=== PATIENT | male | born 1945 | race Two or more races ===

== ENCOUNTER 2025-01-23 21:14 | Emergency (ER) | payer MEDICARE, MEDICAID, SELFPAY ==
[2025-01-23 21:16] VITALS: BMI 31.4
[2025-01-23 22:41] VITALS: BP 121/70; PULSE 60; RESP 18; TEMP 36.6; O2SAT 96
--- NOTE | 2025-01-23 23:46 | XR_ITS ---
Examination: CT lumbar spine, without contrast. 2-D sagittal reconstructions. 2-D coronal reconstructions. 3-D reconstructions. Date and time of exam: January 24, 2025, 0038 hours INDICATIONS: Patient fell today with injury to lower back, lower back pain CTDI: vol (mGy):44.9 DLP: (mGycm):1201 Technique: Multiple 1.25 mm axial sections of the lumbar spine without intravenous contrast have been obtained. 2-D sagittal and coronal reconstructions have been obtained. 3-D reconstructions have been obtained. Low dose protocols were performed. One or more of the following dose reduction techniques were used; automated exposure control, adjustment of the mA and/or KV according to patient size, use of iterative reconstruction technique. Findings: Adequate alignment lumbar vertebral bodies No lumbar vertebral body compression fracture Lumbar pedicles, laminae, transverse and posterior spinous processes intact No focal lumbar disc protrusion IMPRESSION: No lumbar fracture
--- NOTE | 2025-01-23 23:46 | XR_ITS ---
Examination: CT cervical spine without contrast 2-D sagittal reconstructions 2-D coronal reconstructions 3-D reconstructions. Exam date and time:January 24, 2025 0035 hours INDICATIONS: Patient fell today with injury to the neck, neck pain CTDI:vol (mGy) 51 DLP: (mGycm) 941 Technique: Multiple 2 mm axial sections of the cervical spine have been obtained. The coronal and sagittal reconstructions have been obtained. 3-D reconstructions have been obtained. Low dose protocols were performed. One or more of the following dose reduction techniques were used; automated exposure control, adjustment of the mA and/or KV according to patient size, use of iterative reconstruction technique. Findings: Axial sections demonstrate intact base of the skull. C1 exhibit satisfactory relationship to the odontoid. No acute cervical vertebral body fracture seen. Alignment posterior spinous processes satisfactory. Multiple subcentimeter osteolytic lesions Mild pleural disease Impression: No acute cervical fracture. Multiple subcentimeter osteolytic lesions vertebral bodies, osseous metastatic disease not excluded, recommend MRI cervical spine follow-up, pre and postcontrast
--- NOTE | 2025-01-23 23:46 | XR_ITS ---
Examination: CT brain head without contrast. 2-D sagittal coronal reconstructions Date and time of exam:January 24, 2025 0038 hours INDICATIONS: Patient fell today with injury to the head, pain CTDI: vol (mGy):51 DLP: (mGycm):1019 Technique: Multiple CT axial sections of the brain have been obtained, 5 mm slice thickness. Contrast has not been administered. 2-D sagittal, coronal reconstructions have been obtained Low dose protocols were performed. One or more of the following dose reduction techniques were used; automated exposure control, adjustment of the mA and/or KV according to patient size, use of iterative reconstruction technique. Findings: Acute right subdural hematoma, measuring up to 24 mm in thickness with severe effacement of right cerebral markings Significant mass effect with midline shift 7 mm Ventricles are not enlarged Fourth ventricle is midline Chronic/subacute left subdural hematoma at the convexity measuring up to 9 mm No intraventricular hemorrhage Cranial vault intact IMPRESSION: Large acute right subdural hematoma with significant mass effect as above
--- NOTE | 2025-01-23 23:46 | XR_ITS ---
Examination: CT thoracic spine, without contrast. 2-D sagittal reconstructions. 2-D coronal reconstructions. 3-D reconstructions. Date and time of exam: January 24, 2025 1238 hours INDICATIONS: Patient fell today with injury to the back, mid back pain CTDI: vol (mGy):41 DLP: (mGycm):585 Technique: Multiple 1.25 mm axial sections of the thoracic spine without intravenous contrast have been obtained. 2-D sagittal and coronal reconstructions have been obtained. 3-D reconstructions have been obtained. Low dose protocols were performed. One or more of the following dose reduction techniques were used; automated exposure control, adjustment of the mA and/or KV according to patient size, use of iterative reconstruction technique. Findings: Adequate alignment thoracic vertebral bodies on the lateral view No thoracic vertebral body compression fracture No focal thoracic disc protrusion IMPRESSION: No acute thoracic fracture
--- NOTE | 2025-01-23 23:46 | PC.NURSE ---
C collar applied at 9906.
--- NOTE | 2025-01-24 00:50 | PD.EDHEAD ---
ED Head Injury RME/HPI General Chief complaint: Fall Stated complaint: FALL, HIT HEAD, BACK INJURY Time Seen by Provider: 01/23/25 23:46 Arrival date/time: 01/23/25 21:14 79M with history of DM and HTN presents to ED with head and back pain after slip and fall in shower. Patient has some dizziness, but no other symptoms. Patient denies LOC, AMS, seizures, N/V, and vision changes. Limitations: no limitations Related Data Home Medications ?Medication ?Instructions ?Recorded ?Confirmed Cyclobenzaprine * (FLEXERIL *) 5 mg PO TID #0 tabs 06/09/17 ibuprofen 600 mg tablet 600 mg PO Q6HR PRN PAIN #0 tabs 06/09/17 metformin 500 mg tablet 500 mg PO BIDAC #0 tabs 06/09/17 (Glucophage) Allergies Allergy/AdvReac Type Severity Reaction Status Date / Time No Known Allergies Allergy Verified 01/23/25 21:15 Review of Systems Review of Systems Systems Reviewed: All systems reviewed, normal except as documented Constitutional Constitutional: Reports system reviewed and no additional complaints, except as documented, Denies fever(s) and Denies headache(s) ENT Ears, Nose, Mouth, and Throat: Reports as per HPI, Denies disequilibrium, Denies headache(s) and Reports vertigo Cardiovascular Cardiovascular: Reports system reviewed and no additional complaints, except as documented, Denies chest pain and Denies dyspnea Respiratory Respiratory: Reports system reviewed and no additional complaints, except as documented, Denies cough and Denies dyspnea Gastrointestinal Gastrointestinal: Reports system reviewed and no additional complaints, except as documented, Denies abdominal pain, Denies nausea and Denies vomiting Neurologic Neurologic: Reports system reviewed and no additional complaints, except as documented, Denies confusion, Denies disequilibrium, Denies headache(s) and Reports vertigo Psychiatric Psychiatric: Denies confusion Past Medical History Social History SMOKING STATUS: Never smoker ED Exam General Limitations: Present no limitations General appearance: Present alert and in no apparent distress Head Head exam: Present atraumatic Eye Eye exam: Present normal appearance, PERRL and EOMI ENT ENT exam: Present normal exam, normal oropharynx and mucous membranes moist Neck Neck exam: Present normal inspection, full ROM and trachea midline Chest Chest inspection: Present normal inspection and symmetric chest wall rise Respiratory Respiratory exam: Present normal lung sounds bilaterally Cardiovascular Cardiovascular exam: Present regular rate, normal rhythm and normal heart sounds Abdominal Exam Abdominal exam: Present soft and normal bowel sounds Extremities Exam Extremities exam: Present normal inspection and full ROM Back Exam Back exam: Present normal inspection and full ROM Neurological Exam Neurological exam: Present alert, oriented X3 and CN II-XII intact Psychiatric Psychiatric exam: Present normal affect and normal mood Skin Skin exam: Present warm, dry, intact and normal color Course Quality Measures none Orders Category Date Time Status Insert IV NOW Care 01/24/25 01:[address] cervical spine wo con Stat Exams 01/23/25 23:[address] head/brain wo con Stat Exams 01/23/25 23:[address] lumbar spine wo con Stat Exams 01/23/25 23:[address] thoracic spine wo con Stat Exams 01/23/25 23:46 Taken CBC Stat Lab 01/24/25 01:08 Completed CMP [Comprehensive Metabolic Panel] Stat Lab 01/24/25 01:08 Completed INR [Prothrombin Time with INR] Stat Lab 01/24/25 01:08 Completed PTT [Partial Thromboplastin Time] Stat Lab 01/24/25 01:08 Completed Acetaminophen Ivpb [Ofirmev Inj] Med 01/24/25 02:19 Discontinued 1,000 mg in 100 ml IV X1 Tranexamic Acid 1,000 mg Ivpb [Tranexamic Acid Ivpb] Med 01/24/25 02:07 Discontinued 1,000 mg in 100 ml IV X1 levETIRAcetam INJ [Keppra Inj] Med 01/24/25 02:07 Discontinued 1,000 mg IVP X1 ONE Vital Signs Vital signs: Vital Signs Temperature 97.9 F 01/23/25 22:41 Pulse Rate 60 01/23/25 22:41 Respiratory Rate 18 01/23/25 22:41 Blood Pressure 121/70 01/23/25 22:41 Pulse Oximetry (%) 96 01/23/25 22:41 Oxygen Delivery Method Room Air 01/23/25 22:41 O2 AT 96% on RA and WNLs Head Injury MDM Narrative MDM Narrative:: 79M with history of DM and HTN presents to ED with head and back pain after slip and fall in shower. Patient has some dizziness, but no other symptoms. Patient denies LOC, AMS, seizures, N/V, and vision changes. Physical exam reveals normal pupil response and EOM. Patient is A&O x4. Some neck and midback tenderness. C-collar placed. Patient is afebrile, calm, and alert. Wet CT head reveals large subdural hematoma. CT neck/back unremarkable. Spoke to Dr. Rushing, neurosurgeon at [facility], who recommends 1 g Keppra and 1 g TXA and accepts transfer. Patient data External records reviewed:: [facility] previous records Clinical information provided by:: patient Social determinants that could affect healthcare access:: none Patient has the following chronic illnesses:: HTN and DM How is presenting disease/condition affected by chronic disease/condition?: exacerbated by Evaluation data The following diagnostics were reviewed and interpreted by me:: lab results and radiology exam(s) Lab and/or radiology exams considered but not ordered:: ordered Interpretation Summary: above Medications / Prescriptions Medications or Prescriptions considered but not ordered:: ordered Medication administrations:: Medication Administration History Discontinued Medications Tranexamic Acid (Tranexamic Acid Ivpb) 1,000 mg in 100 mls @ 200 mls/hr IV X1 ONE Stop: 01/24/25 02:36 Last Admin: 01/24/25 02:25 Dose: 200 mls/hr Documented By: JACOB Acetaminophen (Ofirmev Inj) 1,000 mg in 100 mls @ 250 mls/hr IV X1 ONE Stop: 01/24/25 02:42 Last Admin: 01/24/25 02:28 Dose: Not Given Documented By: JACOB Non-Admin Reason: Cancelled by Provider Comments: TRANSFER TEAM HERE Levetiracetam (Levetiracetam Inj 100 Mg/Ml Vial 5ml) 1,000 mg IVP X1 ONE Stop: 01/24/25 02:08 Last Admin: 01/24/25 02:24 Dose: 1,000 mg Documented By: JACOB above Consultations Consultation(s) initiated? (list below): Yes Diagnosis Differential diagnosis head injury: concussion without loss of consciousness, epidural hematoma, closed head injury, subarachnoid hematoma, postconcussion syndrome, subdural hematoma, concussion with loss of consciousness and other (subdural hematoma) Most likely diagnosis given after review of the tests above:: subdural hematoma Admission Indicated Admission indicated?: not indicated Explain why admission is indicated or not indicated:: jewelsnfer Admission Request Was there a request for admission?: No Disposition Plan Disposition Plan: Transfer Discharge Plan Plan Patient Disposition: er Acute Care [facility] Pt Being Transferred to: [facility] Service Needed for Transfer: Neurosurgery Prescriptions/Referrals Prescriptions/Med Rec: No Action metformin [Glucophage] 500 MG tablet 500 mg PO BIDAC Qty: 0 ibuprofen 600 MG tablet 600 mg PO Q6HR PRN (Reason: PAIN) Qty: 0 Cyclobenzaprine * (FLEXERIL *) 5 MG tablet 5 mg PO TID Qty: 0 Referrals: No Primary/Family,Physician [Primary Care Provider] - In 1 week Problem List Clinical Impression: Subdural hematoma Patient/Caregiver Discharge Instructions Print Language: Kinyarwanda Stand Alone Forms: Mikaela Award Info., Patient Portal Info Letter PA/SUPERVISOR [employer] Supervising Physician PA/SUPERVIS[employer] Supervising Physician: Dr. Redyd
[2025-01-24 01:07] VITALS: BP 124/68; PULSE 56; RESP 18; O2SAT 96
[2025-01-24 01:38] LABS: Alanine Aminotransferase 11 U/L (10-49); Albumin, Serum 4.2 gm/dL (3.4-4.8); Albumin/Globulin Ratio 1.4 (1.2-2.2); Alkaline Phosphatase 97 U/L (46-116); Anion Gap 9 (7-16); Aspartate Amino Transferase 19 U/L (0-34); BUN/Creatinine Ratio 15 Ratio (12-20); Bilirubin,Total 0.6 mg/dL (0.3-1.2); Blood Urea Nitrogen 15 mg/dL (9-23); Calcium 8.9 mg/dL (8.3-10.6); Calcium (Corrected) 8.9 mg/dL (8.5-10.1); Chloride 106 mMol/L (98-107); Estimated Creatinine Clearance 54.2 mL/min (>60); Globulin 2.9 gm/dL (2.3-3.5); Glucose 151 mg/dL (74-106); Osmolality,Calculated 283 (275-295); Potassium 4.2 mMol/L (3.4-5.1); Sodium 140 mMol/L (136-145); Total Protein 7.1 gm/dL (5.7-8.2); eGFR > 60 See Note
[2025-01-24 01:44] LABS: Basophils % (Auto) 0 % (0-2.5); Eosinophils # (Auto) 0.2 Thou/mm3 (0.0-0.5); Eosinophils % (Auto) 3 % (0-10); Hematocrit 40.8 % (41.0-53.0); Hemoglobin 14.4 g/dL (13.5-16.0); Immature Granulocytes % (Auto) 0 % (0-0); Immature Granulocytes Auto 0.01 Thou/mm3 (0.00-0.00); Lymphocytes # (Auto) 1.9 Thou/mm3 (1.0-4.8); Lymphocytes % (Auto) 28 % (10-50); Mean Corpuscular HGB Conc 35.3 g/dl (31.0-37.0); Mean Corpuscular Hemoglobin 34.4 pg (25.0-35.0); Mean Corpuscular Volume 98 fL (80-100); Monocytes # (Auto) 0.6 Thou/mm3 (0.0-0.8); Monocytes % (Auto) 9 % (0-12); Neutrophils % (Auto) 59 % (37-80); Nucleated Red Blood Cell % 0 /100 WBC (0); Platelet Count 246 Thou/mm3 (140-440); RDW Standard Deviation 49.1 fL (35.1-43.9); Red Blood Count 4.18 Miln/mm3 (4.50-5.90); White Blood Count 6.8 Thou/mm3 (3.8-10.6)
--- NOTE | 2025-01-24 01:47 | PRELIM_ITS ---
CT scan of the head without intravenous contrast (axial sections with sagittal and coronal reformats) January 24, 2025 0035 hours. 3D reconstructed images were also provided. Clinical History: Fall in shower No prior study is available for comparison. Findings: There is a large acute on chronic subdural hematoma along the right cerebral convexity with hematocrit level, measuring 2.4 cm in thickness with underlying mass effect. There is a midline shift of 7 mm to the left. The right lateral ventricle is mildly effaced. No evidence of hydrocephalus. There is also a subacute to chronic subdural hematoma along the left cerebral convexity, measuring about 1 cm in thickness with mild underlying mass effect. There are mild periventricular white matter hypodensities, likely representing chronic small vessel ischemia. There is volume loss. There is atheromatous calcification of the cavernous segment of internal carotid arteries bilaterally. The calvarium is intact. The mastoid air cells and the visualized paranasal sinuses are clear. Impression: Large acute on chronic subdural hematoma along the right cerebral convexity with mass effect and 7 mm midline shift to the left as described. Subacute on chronic subdural hematoma along the left cerebral convexity with mild underlying mass effect as described. No evidence of calvarial fracture. Other findings as described above. Discussion Details: Results verbally communicated to : Dr. Jordan at 01:33 AM 01/24/2025 Report Electronically Signed By: Edgar Mathias 01/24/2025 1:46:28 AM [EST]
--- NOTE | 2025-01-24 01:47 | PRELIM_ITS ---
CT scan of the cervical spine without intravenous contrast (axial sections with sagittal and coronal reformats) January 24, 2025 0035 hours Clinical History: Fall in shower No prior study is available for comparison. Findings: The vertebrae demonstrate heterogeneous density with multiple ill-defined lucencies. There is no fracture or traumatic subluxation. Straightening of the cervical spine is identified, which may be related to muscle spasm. Mild degenerative changes are noted in the form of multilevel marginal osteophytes, decreased disc spaces and facet arthropathy. The prevertebral soft tissues are unremarkable. Small right apical pleural effusion noted. Impression: No evidence of fracture or subluxation. Vertebrae demonstrate heterogeneous density with multiple ill-defined lucencies. While this may be related to osteopenia, the possibility of an infiltrative process cannot be entirely excluded. Recommend clinical correlation and followup. Small right apical pleural effusion. Report Electronically Signed By: Edgar Mathias 01/24/2025 1:46:10 AM [EST]
--- NOTE | 2025-01-24 01:49 | PRELIM_ITS ---
CT scan of the thoracic spine without intravenous contrast (axial sections with sagittal and coronal reformats) January 24, 2025 0038 hours. 3D reconstructed images were also provided. Clinical History: Fall in shower No prior study is available for comparison. Findings: The bones are osteopenic. There is no acute fracture or traumatic subluxation. The thoracic vertebrae are normally aligned. Mild degenerative changes are identified in the spine. No significant central canal narrowing. There is an unfused apophysis at the spinous process of T1. No evidence of soft tissue fluid collection or hematoma. There is a 4 mm calcified granuloma in the left upper lobe. Impression: No acute fracture or traumatic subluxation. Other findings as described above. Report Electronically Signed By: Edgar Mathias 01/24/2025 1:49:02 AM [EST]
--- NOTE | 2025-01-24 01:51 | PRELIM_ITS ---
CT scan of the lumbar spine without intravenous contrast (axial sections with sagittal and coronal reformats) January 24, 2025 0038 hours. 3D reconstructed images were also provided. Clinical History: Fall in shower No prior study is available for comparison. Findings: The bones are osteopenic with mildly decreased height of the vertebrae. There is no acute fracture or traumatic subluxation. Mild degenerative changes are noted in the form of multilevel marginal osteophytes, decreased disc spaces, facet hypertrophy . Multilevel mild central canal and mild to moderate bilateral neural foraminal narrowing. The sacroiliac joints are intact and demonstrate degenerative changes. No evidence of soft tissue fluid collection or hematoma. Incidental note is made of a 5 mm hyperdense lesion in the right kidney, too small to characterize. Impression: No evidence of acute fracture or subluxation. Mild lumbar spondylosis. Other findings as described above. Report Electronically Signed By: Edgar Mathias 01/24/2025 1:50:55 AM [EST]
[2025-01-24] MEDS: levETIRAcetam INJ 100 MG/ML VIAL 5ML 1000 MG IVP (02:24)
[2025-01-24] MEDS: TRANEXAMIC ACID 1,000 MG IVPB 1,000 MG/100 ML BAG 200 MG IV (02:25)
[2025-01-24 02:38] VITALS: BP 128/67; PULSE 56; RESP 18; O2SAT 98
--- NOTE | 2025-01-24 02:43 | PC.NURSE ---
REPORT CALLED TO FRED SPOKE TO CRICKET.
[2025-01-24 03:00] LABS: Partial Thromboplastin Time 26.7 Seconds (22.0-36.0); Prothrombin Time 10.7 Seconds (9.0-12.2)
== END 2025-01-24 02:48 | disposition short-term general hospital (02) ==
PROVIDERS: Physician Assistant; Emergency Provider Emergency Medicine
DX: S06.5XAA Traumatic subdural hemorrhage with loss of consciousness status unknown, initial encounter (principal); W18.2XXA Fall in (into) shower or empty bathtub, initial encounter; Y93.E1 Activity, personal bathing and showering; E11.9 Type 2 diabetes mellitus without complications; I10 Essential (primary) hypertension
CPT/HCPCS: 36415; 70450; 72125; 72128; 72131; 80053; 85025; 85610; 85730; 96374; 99285; J0131; J1953; J3490